=== PATIENT | female | born 1955 | race Caucasian/White ===

== ENCOUNTER → 2018-05-30 | Outpatient (REF) ==
[~2018-05-30] MED LIST: AMBIEN 10MG10 MG PO; AMBROTOSE PO; CO-Q1060 MG PO; HYALURONIC ACID PO; KELP PO; MASON NATURAL500 MG PO; MIRALAX17 GM/DOSE PO; PROBIOTIC-MAJOR PO; PROTONIX 40MG T40 MG PO; PROTONIX PO; SYNTHROID0.025 MG PO; SYNTHROID0.1 MG/TAB PO; WOMEN'S ONE DAI1 TAB PO; XANAX .25M0.25 MG/TA PO
[2018-05-30 09:11] LABS: THYROID STIMULATING HORMONE 1.14 uIU/mL (0.465-4.680)
== END ==
LOC: ZLAB.WCH 08:25
PROVIDERS: Internal Medicine
DX: Z01.89 Encounter for other specified special examinations (principal)

== ENCOUNTER → 2018-09-04 | Outpatient (REF) ==
[2018-09-04 16:32] LABS: THYROID STIMULATING HORMONE 1.04 uIU/mL (0.465-4.680)
== END ==
LOC: ZLAB.WCH 15:18
PROVIDERS: Internal Medicine
DX: Z01.89 Encounter for other specified special examinations (principal)